=== PATIENT | male | born 1955 | race Caucasian/White ===

== ENCOUNTER 2019-10-19 15:32 | Inpatient (IN) ==
[2019-10-19] MEDS ORDERED: ACETAMINOPHEN 325 MG TABLET PO PRN (15:36)
[2019-10-19] MEDS ORDERED: DOCUSATE SODIUM 100 MG CAPSULE PO PRN (15:36)
[2019-10-19] MEDS ORDERED: ONDANSETRON 4 MG/2 ML VIAL IV PRN (15:36)
[2019-10-19] MEDS ORDERED: ZALEPLON 5 MG CAPSULE PO PRN (15:36)
[2019-10-19] MEDS ORDERED: GLUCAGON 1 MG VIAL IM PRN (15:53)
[2019-10-19] MEDS ORDERED: DEXTROSE 50% 25 GM/50 ML VIAL IV PRN (15:53)
[2019-10-19 19:56] LABS: Basophils % 0.6 % (0.0-0.8); Eosinophils # 0.2 10*3/uL (0.0-0.87); Eosinophils % 2.6 % (0.00-10.9); Hematocrit 41.4 VOL% (42.0-52.0); Hemoglobin 13.2 GM/DL (14.0-18.0); Immature Granulocytes % 0.3 %; Immature Granulocytes Absolute 0.02 #; Lymphocytes # 2.3 10*3/uL (1.4-4.0); Lymphocytes % 32.2 % (21.2-54.2); Mean Corpuscular HGB Conc 31.9 GM/DL (32-36); Mean Corpuscular Volume 88.5 FL (87-102); Mean Platelet Volume 9.5 FL (9.6-12.0); Monocytes % 7.8 % (1.7-12.7); Neutrophils % 56.5 % (38.7-73.9); Platelet Count 258 T/CUMM (130-400); Red Blood Count 4.68 MC/CUMM (3.8-5.5); Red Cell Distribution Width 13.1 % (9.3-17.3); White Blood Count 7.2 T/CUMM (4-12)
[2019-10-19 20:19] LABS: Calcium 8.1 MG/DL (8.5-10.1); Osmolality,Calculated 278.1 MOS/KG (273-304); Risk Ratio 6.46; VLDL CHOLESTEROL 55.8 MG/DL
[2019-10-19 20:21] LABS: CKMB % 10.9 %
[2019-10-19 20:24] LABS: Troponin I 8.34 NG/ML (0.00-0.045)
[2019-10-19 20:25] LABS: Troponin I 8.29 NG/ML (0.00-0.045)
[2019-10-19] MEDS: INSULIN REGULAR 100 UNIT/ML SUBCUT SCH (20:44)
[2019-10-19] MEDS ORDERED: DILTIAZEM CD 240 MG CAPSULE PO ONE (21:00)
[2019-10-19 22:17] LABS: CKMB % 11.1 %
[2019-10-19 22:18] LABS: Troponin I 8.87 NG/ML (0.00-0.045)
[2019-10-19] MEDS: ASCORBIC ACID 500 MG TABLET PO SCH (22:27)
[2019-10-20 06:34] LABS: Basophils % 0.7 % (0.0-0.8); Eosinophils # 0.2 10*3/uL (0.0-0.87); Eosinophils % 2.8 % (0.00-10.9); Hematocrit 35.5 VOL% (42.0-52.0); Hemoglobin 11.5 GM/DL (14.0-18.0); Immature Granulocytes % 0.2 %; Immature Granulocytes Absolute 0.01 #; Lymphocytes # 1.6 10*3/uL (1.4-4.0); Lymphocytes % 28.9 % (21.2-54.2); Mean Corpuscular HGB Conc 32.4 GM/DL (32-36); Mean Corpuscular Volume 86.8 FL (87-102); Mean Platelet Volume 9.6 FL (9.6-12.0); Monocytes % 10.6 % (1.7-12.7); Neutrophils % 56.8 % (38.7-73.9); Platelet Count 209 T/CUMM (130-400); Red Blood Count 4.09 MC/CUMM (3.8-5.5); White Blood Count 5.4 T/CUMM (4-12)
[2019-10-20 07:10] LABS: Calcium 8.2 MG/DL (8.5-10.1); Osmolality,Calculated 278.8 MOS/KG (273-304); Thyroid Stimulating Hormone 2.25 uIU/ml (0.358-3.74)
[2019-10-20] MEDS: PANTOPRAZOLE 40 MG TABLET PO SCH (09:37)
[2019-10-20] MEDS: METOPROLOL SUCCINATE XL 50 MG TABLET PO SCH (09:38)
[2019-10-20] MEDS: ASCORBIC ACID 500 MG TABLET PO SCH ×2 (09:38→21:20)
[2019-10-20] MEDS: INSULIN REGULAR 100 UNIT/ML SUBCUT SCH ×2 (09:49→16:48)
[2019-10-20] MEDS ORDERED: diphenhydrAMINE CAP 25 MG CAPSULE PO ONE (10:53)
[2019-10-20] MEDS ORDERED: ASPIRIN 325 MG TABLET PO ONE (10:53)
[2019-10-20] MEDS ORDERED: DIAZEPAM 5 MG TABLET PO ONE (10:53)
[2019-10-20] MEDS ORDERED: POTASSIUM CHLORIDE RIDER 10 MEQ in PREMIX 1 EACH IV PRN (10:53)
[2019-10-20] MEDS ORDERED: MAGNESIUM SULF RIDER 2 GM in PREMIX 1 EACH IV PRN (10:53)
[2019-10-20] MEDS ORDERED: LIDOCAINE 1% 20 ML VIAL ONE (11:10)
[2019-10-20] MEDS ORDERED: HEPARIN/NACL 0.9% 2 UNITS/ML 1,000 ML IV ONE (11:10)
[2019-10-20] MEDS ORDERED: VERAPAMIL 5 MG/2 ML VIAL ONE (11:22)
[2019-10-20] MEDS: SODIUM CHLORIDE 0.45% 1,000 ML IV SCH ×2 (11:22→21:22)
[2019-10-20] MEDS ORDERED: NITROGLYCERIN DRIP 50 MG/250 ML BOTTLE IV ONE (11:22)
[2019-10-20] MEDS ORDERED: MIDAZOLAM 2 MG/2 ML VIAL ONE (11:37)
[2019-10-20] MEDS ORDERED: HYDROmorphone 2 MG/1 ML VIAL ONE (11:37)
[2019-10-20] MEDS ORDERED: ENOXAPARIN 30 MG/0.3 ML SYRINGE ONE (12:01)
[2019-10-20] MEDS ORDERED: DEXTROSE 50% 25 GM/50 ML VIAL IV PRN (12:07)
[2019-10-20] MEDS ORDERED: SODIUM CHLORIDE 0.9% 1,000 ML IV SCH (12:30)
[2019-10-20] MEDS: ROSUVASTATIN 20 MG TABLET PO SCH (21:20)
[2019-10-20] MEDS: dilTIAZem Drip 125 MG/125 ML PREMIX IV SCH (21:38)
[2019-10-21 05:59] LABS: Basophils % 0.6 % (0.0-0.8); Eosinophils # 0.2 10*3/uL (0.0-0.87); Eosinophils % 2.2 % (0.00-10.9); Hemoglobin 11.3 GM/DL (14.0-18.0); Immature Granulocytes % 0.3 %; Immature Granulocytes Absolute 0.02 #; Lymphocytes # 1.4 10*3/uL (1.4-4.0); Lymphocytes % 20.8 % (21.2-54.2); Mean Corpuscular HGB Conc 32.3 GM/DL (32-36); Mean Corpuscular Volume 87.5 FL (87-102); Mean Platelet Volume 9.1 FL (9.6-12.0); Monocytes % 12.1 % (1.7-12.7); Platelet Count 213 T/CUMM (130-400); Red Cell Distribution Width 12.8 % (9.3-17.3); White Blood Count 6.9 T/CUMM (4-12)
[2019-10-21] MEDS: SODIUM CHLORIDE 0.45% 1,000 ML IV SCH ×3 (05:59→22:00)
[2019-10-21 06:47] LABS: Calcium 8.5 MG/DL (8.5-10.1)
[2019-10-21 08:09] LABS: Apearance,Urine CLEAR (Clear); Bilirubin,Urine Negative (Negative); Blood, Urine Negative (Negative); Glucose,Urine (UA) Negative (Negative); Ketones,Urine Negative (Negative); Nitrite,Urine Negative (Negative); Protein,Urine Negative; RBC,Urine <1 /HPF (0-4); Urine Color Straw (Yellow); Urine Specific Gravity 1.008 (1.001-1.035); Urine Urobilinogen < 2.0 EU/DL (0.2-1.0)
[2019-10-21] MEDS ORDERED: DEXTROSE 50% 25 GM/50 ML VIAL IV PRN (08:43)
[2019-10-21] MEDS ORDERED: GLUCAGON 1 MG VIAL IM PRN (08:43)
[2019-10-21] MEDS: INSULIN REGULAR 100 UNIT/ML SUBCUT SCH ×2 (08:47→16:54)
[2019-10-21] MEDS: METOPROLOL SUCCINATE XL 50 MG TABLET PO SCH (08:48)
[2019-10-21] MEDS: ASCORBIC ACID 500 MG TABLET PO SCH ×2 (08:48→21:57)
[2019-10-21] MEDS: PANTOPRAZOLE 40 MG TABLET PO SCH (08:48)
[2019-10-21] MEDS: ASPIRIN CHEW 81 MG TABLET PO SCH (08:48)
[2019-10-21] MEDS: LOSARTAN 25 MG TABLET PO SCH (08:49)
[2019-10-21] MEDS ORDERED: CLORAZEPATE 3.75 MG TABLET PO PRN (08:55)
[2019-10-21 10:09] LABS: ABG Base Excess -1.1 MMOL/L (-2.5-2.5); ABG Oxygen Saturation 94.7 % (95-100); ABG PCO2 32.1 MM HG (35-48); ABG PH 7.454 (7.35-7.45); ABG PO2 72.4 MM HG (80-95)
[2019-10-21] MEDS: CHLORHEXIDINE 0.12% ORAL RINSE 60 ML BOTTLE SWISH/SPIT SCH ×2 (15:51→21:57)
[2019-10-21] MEDS: CHLORHEXIDINE 4% SOLN 118 ML BOTTLE TOP SCH ×2 (17:53→21:58)
[2019-10-21] MEDS: dilTIAZem Drip 125 MG/125 ML PREMIX IV SCH (21:49)
[2019-10-21] MEDS: ROSUVASTATIN 20 MG TABLET PO SCH (21:57)
[2019-10-22] MEDS ORDERED: PAPAVERINE 60 MG/2 ML VIAL ONE (04:21)
[2019-10-22] MEDS ORDERED: VANCOMYCIN 500 MG VIAL ONE (04:22)
[2019-10-22] MEDS ORDERED: VANCOMYCIN 1,000 MG VIAL ONE (04:22)
[2019-10-22] MEDS: SODIUM CHLORIDE 0.45% 1,000 ML IV SCH (04:40)
[2019-10-22] MEDS ORDERED: CEFUROXIME INJ 1,500 MG in SYRINGE 1 EACH IV ONE (05:00)
[2019-10-22] MEDS ORDERED: HEPARIN/NACL 0.9% 2 UNITS/ML 500 ML IV ONE (05:56)
[2019-10-22] MEDS ORDERED: AMINOCAPROIC ACID 5,000 MG/20 ML VIAL ONE (05:57)
[2019-10-22] MEDS ORDERED: SODIUM CHLORIDE 0.9% 1,000 ML IV SCH (06:00)
[2019-10-22] MEDS ORDERED: FAMOTIDINE 20 MG TABLET PO ONE (06:00)
[2019-10-22] MEDS ORDERED: ALBUMIN 5% 12.5 GM/250 ML VIAL IV ONE ×2 (06:44→10:24)
[2019-10-22 07:32] LABS: ABG Base Excess -2.5 MMOL/L (-2.5-2.5); ABG HCO3 22.4 MMOL/L (20-26); ABG Oxygen Saturation 99.7 % (95-100); ABG PCO2 36.9 MM HG (35-48); ABG PH 7.385 (7.35-7.45); ABG TCO2 19.7 MMOL/L (23-27); Glucose Heart Surgery 166 MG/DL (74-106); Hematocrit Heart Surgery 35.7 PERCENT (42-52); Hemoglobin Heart Surgery 11.6 G/DL (14.0-18.0); Ionized Calcium Arterial 1.19 MMOL/L (1.21-1.46); PCO2 Patient Temp Arterial 36.9 MMHG; PH Patient Temp Arterial 7.385; Patient Temperature 37 CELCIUS; Potassium Heart/CVR 4.2 MMOL/L (3.5-5.1); Sodium Heart/CVR 138 MMOL/L (135-145)
[2019-10-22 08:55] LABS: Hemoglobin Heart Surgery 8.2 G/DL (14.0-18.0); PCO2 Patient Temp Venous 32.2 MM HG; PH Patient Temp Venous 7.452; PO2 Patient Temp Venous 37.3 MM HG; Potassium Heart/CVR 4.7 MMOL/L (3.5-5.1); VBG Base Excess -1.8 MEQ/L (0-4); VBG HCO3 22.4 MEQ/L (24-28); VBG Oxygen Saturation 76.9 %; VBG PCO2 35.1 MMHG (41-51); VBG PH 7.422
[2019-10-22 09:10] LABS: Apearance,Urine CLEAR (Clear); Bacteria,Urine Occasional /HPF (Few); Bilirubin,Urine Negative (Negative); Blood, Urine Negative (Negative); Glucose,Urine (UA) Negative (Negative); Ketones,Urine 5 mg/dL (Negative); Nitrite,Urine Negative (Negative); Protein,Urine Negative; RBC,Urine 2 /HPF (0-4); Squamous Epithelial Cell,Urine Occasional /HPF (0-10); Urine Color Yellow (Yellow); Urine Specific Gravity 1.011 (1.001-1.035); Urine Urobilinogen < 2.0 EU/DL (0.2-1.0); WBC,Urine 2 /HPF (0-6)
[2019-10-22] MEDS ORDERED: CALCIUM CHLORIDE 1,000 MG/10 ML VIAL IV ONE (09:22)
[2019-10-22] MEDS ORDERED: PHENYLEPHRINE DRIP 20 MG/250 ML PREMIX IV ONE (09:22)
[2019-10-22] MEDS ORDERED: LIDOCAINE 2% 5 ML VIAL ONE ×2 (09:22→10:12)
[2019-10-22] MEDS ORDERED: SODIUM CHLORIDE 0.9% 100 ML IV ONE (09:23)
[2019-10-22] MEDS ORDERED: DILTIAZEM 50 MG/10 ML VIAL IV ONE (09:23)
[2019-10-22] MEDS ORDERED: MIDAZOLAM 10 MG/2 ML VIAL ONE (09:23)
[2019-10-22] MEDS ORDERED: SODIUM CHLORIDE 0.9% 2,000 ML IV ONE (09:23)
[2019-10-22] MEDS ORDERED: LACTATED RINGERS 1,000 ML IV ONE (09:23)
[2019-10-22] MEDS ORDERED: VECURONIUM 10 MG VIAL IV ONE (09:23)
[2019-10-22] MEDS ORDERED: METOPROLOL TARTRATE 5 MG/5 ML VIAL IV ONE (09:23)
[2019-10-22] MEDS ORDERED: SODIUM CHLORIDE 0.9% 250 ML IV ONE (09:23)
[2019-10-22] MEDS ORDERED: SUFentanil 250 MCG/5 ML AMP ONE (09:23)
[2019-10-22 09:25] LABS: Hematocrit Heart Surgery 25.8 PERCENT (42-52); Hemoglobin Heart Surgery 8.3 G/DL (14.0-18.0); PCO2 Patient Temp Venous 29.1 MM HG; PH Patient Temp Venous 7.47; PO2 Patient Temp Venous 35.4 MM HG; Potassium Heart/CVR 4.8 MMOL/L (3.5-5.1); VBG Base Excess -1.8 MEQ/L (0-4); VBG HCO3 22.7 MEQ/L (24-28); VBG Oxygen Saturation 79.9 %; VBG PCO2 33.6 MMHG (41-51); VBG PH 7.426; VBG PO2 43.5 MMHG (17-40)
[2019-10-22 10:09] LABS: ABG Base Excess -3.4 MMOL/L (-2.5-2.5); ABG HCO3 19.4 MMOL/L (20-26); ABG Oxygen Saturation 98.8 % (95-100); ABG PCO2 27.8 MM HG (35-48); ABG PH 7.462 (7.35-7.45); ABG PO2 208.4 MM HG (80-95); ABG TCO2 20.3 MMOL/L (23-27); Glucose Heart Surgery 248 MG/DL (74-106); Hemoglobin Heart Surgery 10.1 G/DL (14.0-18.0); Ionized Calcium Arterial 1.19 MMOL/L (1.21-1.46); PCO2 Patient Temp Arterial 27.8 MMHG; PH Patient Temp Arterial 7.462; PO2 Patient Temp Arterial 208.4 MM HG; Patient Temperature 37 CELCIUS; Potassium Heart/CVR 4.8 MMOL/L (3.5-5.1); Sodium Heart/CVR 128 MMOL/L (135-145)
[2019-10-22] MEDS ORDERED: MANNITOL 100 GM/500 ML BAG IV ONE (10:12)
[2019-10-22] MEDS ORDERED: FUROSEMIDE 20 MG/2 ML VIAL ONE (10:13)
[2019-10-22] MEDS ORDERED: SODIUM BICARBONATE 50 MEQ/50 ML VIAL IV ONE (10:13)
[2019-10-22] MEDS ORDERED: PROTAMINE SULFATE 50 MG/5 ML VIAL IV ONE (10:13)
[2019-10-22] MEDS ORDERED: ALBUMIN 25% 25 GM/100 ML VIAL IV ONE (10:13)
[2019-10-22] MEDS ORDERED: DEXTROSE 5% KCL 20 MEQ 20 MEQ/1,000 ML BAG IV ONE (10:13)
[2019-10-22] MEDS ORDERED: PROTAMINE SULFATE 250 MG/25 ML VIAL IV ONE (10:13)
[2019-10-22] MEDS ORDERED: HEPARIN 10,000 UNIT/10 ML VIAL ONE (10:13)
[2019-10-22] MEDS ORDERED: methylPREDNISolone SOD SUC 1,000 MG/8 ML VIAL ONE (10:13)
[2019-10-22] MEDS ORDERED: MAGNESIUM SULFATE 5 GM/10 ML VIAL IV ONE (10:13)
[2019-10-22] MEDS ORDERED: POTASSIUM CHLORIDE RIDER 100 ML IV ONE (10:24)
[2019-10-22] MEDS ORDERED: EPINEPHrine 1 MG/10 ML SYRINGE ONE (10:24)
[2019-10-22] MEDS ORDERED: CALCIUM CHLORIDE 1,000 MG/10 ML SYRINGE IV ONE (10:24)
[2019-10-22] MEDS ORDERED: PHENYLEPHRINE DRIP 40 MG/250 ML PREMIX IV ONE (10:24)
[2019-10-22] MEDS ORDERED: INSULIN REGULAR 100 UNIT/ML IV PRN (10:46)
[2019-10-22] MEDS ORDERED: ACETAMINOPHEN 650 MG SUPP RECTAL PRN (10:46)
[2019-10-22] MEDS ORDERED: MIDAZOLAM 2 MG/2 ML VIAL IV PRN (10:46)
[2019-10-22] MEDS ORDERED: POTASSIUM CHLORIDE RIDER 10 MEQ in PREMIX 1 EACH IV PRN (10:46)
[2019-10-22] MEDS ORDERED: ONDANSETRON 4 MG/2 ML VIAL IV PRN (10:46)
[2019-10-22] MEDS ORDERED: CHLORHEXIDINE 4% SOLN 118 ML BOTTLE TOP PRN (10:46)
[2019-10-22] MEDS ORDERED: NITROPRUSSIDE 100 MG in DEXTROSE 5% 250 ML IV PRN (10:46)
[2019-10-22] MEDS ORDERED: MAGNESIUM SULF RIDER 4 GM in PREMIX 1 EACH IV PRN (10:46)
[2019-10-22] MEDS ORDERED: VECURONIUM 10 MG VIAL IV PRN ×2 (10:46)
[2019-10-22] MEDS ORDERED: INSULIN REGULAR 100 UNIT/ML IV ONE (10:46)
[2019-10-22] MEDS ORDERED: SODIUM CHLORIDE 0.45% 1,000 ML IV SCH ×2 (10:46)
[2019-10-22] MEDS ORDERED: DEXTROSE 10% 250 ML BAG IV PRN ×2 (10:46)
[2019-10-22] MEDS ORDERED: MORPHINE 10 MG/1 ML VIAL IV PRN (10:46)
[2019-10-22] MEDS ORDERED: PHENYLEPHRINE DRIP 40 MG/250 ML PREMIX IV PRN (10:46)
[2019-10-22] MEDS ORDERED: MIDAZOLAM 10 MG/2 ML VIAL IV PRN (10:46)
[2019-10-22] MEDS ORDERED: CALCIUM CHLORIDE 1,000 MG/10 ML SYRINGE IV PRN (10:46)
[2019-10-22] MEDS ORDERED: INSULIN REGULAR DRIP 100 ML IV SCH (10:46)
[2019-10-22] MEDS ORDERED: MAGNESIUM SULF RIDER 2 GM in PREMIX 1 EACH IV PRN (10:46)
[2019-10-22] MEDS ORDERED: SEVOFLURANE 1 UNIT/15 MINUTE INH ONE (10:53)
[2019-10-22] MEDS: LACTATED RINGERS 250 ML IV PRN ×7 (11:00→14:58)
[2019-10-22 11:09] LABS: ABG Base Excess -2.4 MMOL/L (-2.5-2.5); ABG HCO3 22.4 MMOL/L (20-26); ABG Oxygen Saturation 97.1 % (95-100); ABG PCO2 36.6 MM HG (35-48); ABG PO2 87.7 MM HG (80-95); Glucose Heart Surgery 245 MG/DL (74-106); Hemoglobin Heart Surgery 10.7 G/DL (14.0-18.0); Potassium Heart/CVR 4.3 MMOL/L (3.5-5.1)
[2019-10-22 11:09] LABS: Basophils % 0.5 % (0.0-0.8); Eosinophils # 0.1 10*3/uL (0.0-0.87); Eosinophils % 1.3 % (0.00-10.9); Hematocrit 32.9 VOL% (42.0-52.0); Hemoglobin 10.6 GM/DL (14.0-18.0); Immature Granulocytes % 0.7 %; Immature Granulocytes Absolute 0.04 #; Lymphocytes # 0.6 10*3/uL (1.4-4.0); Lymphocytes % 11.3 % (21.2-54.2); Mean Corpuscular HGB Conc 32.2 GM/DL (32-36); Mean Corpuscular Volume 88.4 FL (87-102); Mean Platelet Volume 9.5 FL (9.6-12.0); Monocytes % 5.3 % (1.7-12.7); Neutrophils % 80.9 % (38.7-73.9); Platelet Count 161 T/CUMM (130-400); Red Blood Count 3.72 MC/CUMM (3.8-5.5); Red Cell Distribution Width 12.9 % (9.3-17.3); White Blood Count 5.5 T/CUMM (4-12)
[2019-10-22] MEDS: CHLORHEXIDINE 4% SOLN 118 ML BOTTLE TOP SCH (11:12)
[2019-10-22 11:20] LABS: INR 1.2; PT Patient Result 12.4 SECS (9.8-11.9)
[2019-10-22 11:27] LABS: Albumin 3.7 G/DL (3.4-5.0); Bilirubin,Total 1.2 MG/DL (0.2-1.0); Calcium 9.7 MG/DL (8.5-10.1); Osmolality,Calculated 279.1 MOS/KG (273-304); Total Protein 7.2 G/DL (6.4-8.3)
[2019-10-22] MEDS: POTASSIUM CHLORIDE RIDER 20 MEQ in PREMIX 1 EACH IV PRN ×4 (11:47→22:40)
[2019-10-22] MEDS: ALBUMIN 5% 12.5 GM in PREMIX 1 EACH IV PRN ×4 (11:48→14:42)
[2019-10-22 11:55] LABS: CKMB % 6.4 %
[2019-10-22 11:58] LABS: Troponin I 5.23 NG/ML (0.00-0.045)
[2019-10-22] MEDS: LOSARTAN 25 MG TABLET PO SCH (12:29)
[2019-10-22] MEDS: ASPIRIN CHEW 81 MG TABLET PO SCH (12:29)
[2019-10-22] MEDS: METOPROLOL SUCCINATE XL 50 MG TABLET PO SCH (12:29)
[2019-10-22] MEDS: PANTOPRAZOLE 40 MG TABLET PO SCH (12:29)
[2019-10-22] MEDS: CHLORHEXIDINE 0.12% ORAL RINSE 60 ML BOTTLE SWISH/SPIT SCH ×2 (12:29→21:25)
[2019-10-22] MEDS: ASCORBIC ACID 500 MG TABLET PO SCH (12:30)
[2019-10-22] MEDS: INSULIN REGULAR 100 UNIT/ML SUBCUT SCH (12:30)
[2019-10-22 14:15] LABS: ABG Base Excess -1.9 MMOL/L (-2.5-2.5); ABG HCO3 22.9 MMOL/L (20-26); ABG Oxygen Saturation 97.8 % (95-100); ABG PCO2 36.9 MM HG (35-48); ABG PH 7.396 (7.35-7.45); ABG PO2 95.3 MM HG (80-95); ABG TCO2 20.6 MMOL/L (23-27); Glucose Heart Surgery 191 MG/DL (74-106); Hematocrit Heart Surgery 31.3 PERCENT (42-52); Hemoglobin Heart Surgery 10.1 G/DL (14.0-18.0); Potassium Heart/CVR 3.6 MMOL/L (3.5-5.1)
[2019-10-22] MEDS: CEFUROXIME INJ 1,500 MG in SYRINGE 1 EACH IV SCH (18:50)
[2019-10-22] MEDS: MORPHINE 4 MG/1 ML VIAL IV PRN (19:18)
[2019-10-22 19:31] LABS: ABG Base Excess -2.6 MMOL/L (-2.5-2.5); ABG HCO3 22.2 MMOL/L (20-26); ABG Oxygen Saturation 94.6 % (95-100); ABG PCO2 39.6 MM HG (35-48); ABG PH 7.364 (7.35-7.45); ABG PO2 75.2 MM HG (80-95); ABG TCO2 20.6 MMOL/L (23-27); Glucose Heart Surgery 119 MG/DL (74-106); Hematocrit Heart Surgery 31.1 PERCENT (42-52); Hemoglobin Heart Surgery 10.1 G/DL (14.0-18.0); Potassium Heart/CVR 3.8 MMOL/L (3.5-5.1)
[2019-10-22] MEDS: LATANOPROST 0.005% OPH SOLN 2.5 ML BOTTLE RIGHT EYE SCH (21:27)
[2019-10-22 22:28] LABS: ABG Base Excess -3.4 MMOL/L (-2.5-2.5); ABG HCO3 21.6 MMOL/L (20-26); ABG Oxygen Saturation 97.5 % (95-100); ABG PCO2 36.1 MM HG (35-48); ABG PH 7.378 (7.35-7.45); ABG PO2 90.7 MM HG (80-95); ABG TCO2 19.5 MMOL/L (23-27); Glucose Heart Surgery 134 MG/DL (74-106); Hematocrit Heart Surgery 30.1 PERCENT (42-52); Hemoglobin Heart Surgery 9.7 G/DL (14.0-18.0); Potassium Heart/CVR 4.1 MMOL/L (3.5-5.1)
[2019-10-22 22:54] LABS: CKMB % 3.2 %
[2019-10-22 23:01] LABS: Troponin I 4.2 NG/ML (0.00-0.045)
[2019-10-22 23:14] LABS: ABG Base Excess -3.2 MMOL/L (-2.5-2.5); ABG HCO3 21.7 MMOL/L (20-26); ABG Oxygen Saturation 97.9 % (95-100); ABG PCO2 35.7 MM HG (35-48); ABG PH 7.384 (7.35-7.45); ABG PO2 96.3 MM HG (80-95); ABG TCO2 19.5 MMOL/L (23-27); Glucose Heart Surgery 139 MG/DL (74-106); Hematocrit Heart Surgery 30.5 PERCENT (42-52); Hemoglobin Heart Surgery 9.9 G/DL (14.0-18.0); Potassium Heart/CVR 4.4 MMOL/L (3.5-5.1)
[2019-10-23 00:24] LABS: ABG Base Excess -3.6 MMOL/L (-2.5-2.5); ABG HCO3 21.1 MMOL/L (20-26); ABG Oxygen Saturation 95.5 % (95-100); ABG PCO2 36.6 MM HG (35-48); ABG PH 7.378 (7.35-7.45); ABG PO2 84.4 MM HG (80-95); ABG TCO2 22.2 MMOL/L (23-27); Glucose Heart Surgery 133 MG/DL (74-106); Hemoglobin Heart Surgery 10.3 G/DL (14.0-18.0); Potassium Heart/CVR 4.4 MMOL/L (3.5-5.1)
[2019-10-23 02:17] LABS: ABG Base Excess -3.4 MMOL/L (-2.5-2.5); ABG HCO3 21.6 MMOL/L (20-26); ABG Oxygen Saturation 97.5 % (95-100); ABG PCO2 35.1 MM HG (35-48); ABG PH 7.386 (7.35-7.45); ABG PO2 92.1 MM HG (80-95); ABG TCO2 19.2 MMOL/L (23-27); Glucose Heart Surgery 154 MG/DL (74-106); Hematocrit Heart Surgery 30.8 PERCENT (42-52); Potassium Heart/CVR 4.3 MMOL/L (3.5-5.1)
[2019-10-23 04:39] LABS: Basophils % 0.1 % (0.0-0.8); Hematocrit 30.6 VOL% (42.0-52.0); Hemoglobin 9.8 GM/DL (14.0-18.0); Immature Granulocytes % 0.5 %; Immature Granulocytes Absolute 0.05 #; Lymphocytes # 0.5 10*3/uL (1.4-4.0); Lymphocytes % 4.7 % (21.2-54.2); Mean Corpuscular Volume 88.4 FL (87-102); Mean Platelet Volume 9.9 FL (9.6-12.0); Monocytes % 4.9 % (1.7-12.7); Neutrophils % 89.8 % (38.7-73.9); Platelet Count 170 T/CUMM (130-400); Red Blood Count 3.46 MC/CUMM (3.8-5.5); White Blood Count 9.8 T/CUMM (4-12)
[2019-10-23 04:46] LABS: ABG Base Excess -3.6 MMOL/L (-2.5-2.5); ABG HCO3 21.4 MMOL/L (20-26); ABG PCO2 34.2 MM HG (35-48); ABG PH 7.391 (7.35-7.45); ABG PO2 74.7 MM HG (80-95); ABG TCO2 18.8 MMOL/L (23-27); Glucose Heart Surgery 158 MG/DL (74-106); Hematocrit Heart Surgery 31.8 PERCENT (42-52); Hemoglobin Heart Surgery 10.3 G/DL (14.0-18.0); Potassium Heart/CVR 4.1 MMOL/L (3.5-5.1)
[2019-10-23 05:00] LABS: Band Neutrophils 3 % (0-10); Lymphocytes 5 % (20-55); Segmented Neutrophils 90 % (50-85); Total Cells Counted 100
[2019-10-23 05:01] LABS: Hypochromasia 1+; Microcytosis Slight; Polychromasia Slight
[2019-10-23 05:02] LABS: Ovalocytes Slight; Platelet Estimate Adequate
[2019-10-23 05:25] LABS: Albumin 3.9 G/DL (3.4-5.0); Bilirubin,Direct 0.19 MG/DL (0.0-0.20); Bilirubin,Total 0.8 MG/DL (0.2-1.0); Osmolality,Calculated 285.4 MOS/KG (273-304); Total Protein 7.6 G/DL (6.4-8.3)
[2019-10-23 05:26] LABS: CKMB % 2.2 %
[2019-10-23 05:35] LABS: Troponin I 3.58 NG/ML (0.00-0.045)
[2019-10-23] MEDS: CEFUROXIME INJ 1,500 MG in SYRINGE 1 EACH IV SCH ×2 (07:01→18:47)
[2019-10-23] MEDS: MORPHINE 4 MG/1 ML VIAL IV PRN (07:37)
[2019-10-23] MEDS ORDERED: INSULIN REGULAR 100 UNIT/ML SUBCUT SCH ×2 (08:00→16:00)
[2019-10-23] MEDS: CHLORHEXIDINE 0.12% ORAL RINSE 60 ML BOTTLE SWISH/SPIT SCH ×2 (08:04→21:49)
[2019-10-23] MEDS ORDERED: FUROSEMIDE 40 MG/4 ML VIAL IV ONE (08:47)
[2019-10-23] MEDS ORDERED: FUROSEMIDE 40 MG/4 ML VIAL ONE (08:53)
[2019-10-23] MEDS ORDERED: MAGNESIUM SULF RIDER 4 GM in PREMIX 1 EACH IV PRN (10:06)
[2019-10-23] MEDS ORDERED: SODIUM CHLOR 0.45% KCL 20 MEQ 20 MEQ/1,000 ML BAG IV SCH (10:06)
[2019-10-23] MEDS ORDERED: ACETAMINOPHEN 325 MG TABLET PO PRN (10:06)
[2019-10-23] MEDS ORDERED: POTASSIUM CHLORIDE 20 MEQ TABLET PO PRN (10:06)
[2019-10-23] MEDS ORDERED: MAGNESIUM HYDROXIDE SUSP 30 ML UDCUP PO PRN (10:06)
[2019-10-23] MEDS ORDERED: GLUCAGON 1 MG VIAL IM PRN (10:06)
[2019-10-23] MEDS ORDERED: ALUMINUM/MAGNES/SIMETH MAX STR 30 ML UDCUP PO PRN (10:06)
[2019-10-23] MEDS ORDERED: DEXTROSE 10% 250 ML BAG IV PRN (10:06)
[2019-10-23] MEDS ORDERED: MAGNESIUM SULF RIDER 2 GM in PREMIX 1 EACH IV PRN (10:06)
[2019-10-23] MEDS ORDERED: METOPROLOL SUCCINATE XL 25 MG TABLET PO SCH (10:06)
[2019-10-23] MEDS ORDERED: ONDANSETRON 4 MG/2 ML VIAL IV PRN (10:06)
[2019-10-23] MEDS: ASPIRIN EC 325 MG TABLET PO SCH (10:40)
[2019-10-23 11:53] LABS: CKMB % 1.6 %
[2019-10-23 11:54] LABS: Troponin I 2.64 NG/ML (0.00-0.045)
[2019-10-23] MEDS: oxyCODONE/ACETAMINOPHEN 5-325 MG TABLET PO PRN (13:46)
[2019-10-23] MEDS ORDERED: hydrALAZINE 20 MG/1 ML VIAL IV PRN (14:01)
[2019-10-23] MEDS: INSULIN REGULAR 100 UNIT/ML SUBCUT SCH ×2 (15:51→21:46)
[2019-10-23] MEDS: LATANOPROST 0.005% OPH SOLN 2.5 ML BOTTLE RIGHT EYE SCH (21:45)
[2019-10-23] MEDS: ATORVASTATIN 40 MG TABLET PO SCH (21:50)
[2019-10-24] MEDS: INSULIN REGULAR 100 UNIT/ML SUBCUT SCH ×6 (01:27→21:38)
[2019-10-24] MEDS ORDERED: DILTIAZEM 25 MG/5 ML VIAL IV ONE (05:03)
[2019-10-24] MEDS ORDERED: AMIODARONE INJ 150 MG in DEXTROSE 5% 100 ML IV ONE (05:03)
[2019-10-24] MEDS ORDERED: AMIODARONE INJ 450 MG in DEXTROSE 5% 241 ML IV SCH (05:30)
[2019-10-24 05:52] LABS: Basophils % 0.1 % (0.0-0.8); Hematocrit 32.1 VOL% (42.0-52.0); Hemoglobin 10.8 GM/DL (14.0-18.0); Immature Granulocytes % 1.1 %; Immature Granulocytes Absolute 0.15 #; Lymphocytes # 0.6 10*3/uL (1.4-4.0); Lymphocytes % 4.2 % (21.2-54.2); Mean Corpuscular HGB Conc 33.6 GM/DL (32-36); Mean Corpuscular Volume 86.5 FL (87-102); Mean Platelet Volume 10.3 FL (9.6-12.0); Monocytes % 5.9 % (1.7-12.7); Neutrophils % 88.7 % (38.7-73.9); Platelet Count 241 T/CUMM (130-400); Red Blood Count 3.71 MC/CUMM (3.8-5.5); Red Cell Distribution Width 13.1 % (9.3-17.3); White Blood Count 13.8 T/CUMM (4-12)
[2019-10-24] MEDS ORDERED: FUROSEMIDE 40 MG/4 ML VIAL IV ONE (06:00)
[2019-10-24] MEDS: dilTIAZem Drip 125 MG/125 ML PREMIX IV SCH (06:13)
[2019-10-24 06:18] LABS: Albumin 3.8 G/DL (3.4-5.0); Bilirubin,Direct 0.16 MG/DL (0.0-0.20); Bilirubin,Total 0.9 MG/DL (0.2-1.0); Calcium 9.1 MG/DL (8.5-10.1); Osmolality,Calculated 283.4 MOS/KG (273-304); Total Protein 7.8 G/DL (6.4-8.3)
[2019-10-24 06:22] LABS: Albumin 3.9 G/DL (3.4-5.0); Bilirubin,Direct 0.18 MG/DL (0.0-0.20); Bilirubin,Indirect 1.7 MG/DL (0.0-1.0); Bilirubin,Total 1.9 MG/DL (0.2-1.0); CKMB % 0.9 %; Total Protein 7.5 G/DL (6.4-8.3)
[2019-10-24 06:25] LABS: Troponin I 1.28 NG/ML (0.00-0.045)
[2019-10-24 06:26] LABS: Hypochromasia 1+; Lymphocytes 5 % (20-55); Platelet Estimate Adequate; Segmented Neutrophils 90 % (50-85); Total Cells Counted 100
[2019-10-24 06:27] LABS: Microcytosis Slight
[2019-10-24] MEDS: DOCUSATE SODIUM 100 MG CAPSULE PO SCH (08:26)
[2019-10-24] MEDS: CHLORHEXIDINE 0.12% ORAL RINSE 60 ML BOTTLE SWISH/SPIT SCH ×2 (08:26→21:43)
[2019-10-24] MEDS: PANTOPRAZOLE 40 MG TABLET PO SCH (08:26)
[2019-10-24] MEDS: FERROUS SULFATE 325 MG TABLET PO SCH (08:26)
[2019-10-24] MEDS: ASPIRIN EC 325 MG TABLET PO SCH (08:26)
[2019-10-24] MEDS: METOPROLOL TARTRATE 25 MG TABLET PO SCH ×2 (08:26→21:37)
[2019-10-24] MEDS: oxyCODONE/ACETAMINOPHEN 5-325 MG TABLET PO PRN ×3 (08:26→21:37)
[2019-10-24] MEDS: ASCORBIC ACID 500 MG TABLET PO SCH ×2 (09:51→21:36)
[2019-10-24] MEDS ORDERED: DILTIAZEM 50 MG/10 ML VIAL IV ONE (10:01)
[2019-10-24] MEDS: AMIODARONE INJ 450 MG in DEXTROSE 5% 241 ML IV SCH (13:50)
[2019-10-24] MEDS ORDERED: ENOXAPARIN 40 MG/0.4 ML SYRINGE SUBCUT SCH (21:00)
[2019-10-24] MEDS: ATORVASTATIN 40 MG TABLET PO SCH (21:36)
[2019-10-24] MEDS: ZALEPLON 5 MG CAPSULE PO PRN (21:37)
[2019-10-24] MEDS: metFORMIN 500 MG TABLET PO SCH (21:37)
[2019-10-24] MEDS: LATANOPROST 0.005% OPH SOLN 2.5 ML BOTTLE RIGHT EYE SCH (21:43)
[2019-10-25] MEDS: INSULIN REGULAR 100 UNIT/ML SUBCUT SCH ×7 (00:41→23:29)
[2019-10-25] MEDS: dilTIAZem Drip 125 MG/125 ML PREMIX IV SCH ×2 (00:48→06:02)
[2019-10-25] MEDS: AMIODARONE INJ 450 MG in DEXTROSE 5% 241 ML IV SCH (03:42)
[2019-10-25 05:59] LABS: Basophils % 0.1 % (0.0-0.8); Eosinophils % 0.2 % (0.00-10.9); Hematocrit 32.7 VOL% (42.0-52.0); Hemoglobin 10.8 GM/DL (14.0-18.0); Immature Granulocytes Absolute 0.14 #; Lymphocytes # 1.4 10*3/uL (1.4-4.0); Lymphocytes % 10.1 % (21.2-54.2); Mean Corpuscular Volume 86.3 FL (87-102); Mean Platelet Volume 10.1 FL (9.6-12.0); Monocytes % 9.2 % (1.7-12.7); Neutrophils % 79.4 % (38.7-73.9); Platelet Count 275 T/CUMM (130-400); Red Blood Count 3.79 MC/CUMM (3.8-5.5); Red Cell Distribution Width 13.2 % (9.3-17.3); White Blood Count 13.6 T/CUMM (4-12)
[2019-10-25] MEDS: oxyCODONE/ACETAMINOPHEN 5-325 MG TABLET PO PRN ×2 (06:05→21:47)
[2019-10-25 06:39] LABS: Alanine Aminotransferase 33 U/L (16-61); Albumin 3.3 G/DL (3.4-5.0); Alkaline Phosphatase 57 U/L (45-117); Aspartate Amino Transferase 22 U/L (0-37); Bilirubin,Total < 0.39 MG/DL (0.2-1.0); Blood Urea Nitrogen 44 MG/DL (7-18); Calcium 8.8 MG/DL (8.5-10.1); Estimated Glom Filtration Rate 58 ML/MIN; Glucose 193 MG/DL (74-106); Osmolality,Calculated 283.2 MOS/KG (273-304); Total Protein 7.3 G/DL (6.4-8.3)
[2019-10-25 06:49] LABS: Alanine Aminotransferase 33 U/L (16-61); Albumin 3.4 G/DL (3.4-5.0); Alkaline Phosphatase 57 U/L (45-117); Aspartate Amino Transferase 20 U/L (0-37); Bilirubin,Indirect 0.3 MG/DL (0.0-1.0); Bilirubin,Total < 0.39 MG/DL (0.2-1.0); Total Protein 6.9 G/DL (6.4-8.3)
[2019-10-25 06:50] LABS: Troponin I 0.619 NG/ML (0.00-0.045)
[2019-10-25 07:52] LABS: Target Cells Few
[2019-10-25 07:53] LABS: Anisocytosis 1+; Burr Cells Few; Hypochromasia 2+
[2019-10-25 07:54] LABS: Platelet Estimate Normal
[2019-10-25] MEDS: METOPROLOL TARTRATE 25 MG TABLET PO SCH ×2 (09:29→21:46)
[2019-10-25] MEDS: metFORMIN 500 MG TABLET PO SCH ×2 (09:29→21:47)
[2019-10-25] MEDS: ASPIRIN EC 325 MG TABLET PO SCH (09:29)
[2019-10-25] MEDS: DOCUSATE SODIUM 100 MG CAPSULE PO SCH (09:29)
[2019-10-25] MEDS: PANTOPRAZOLE 40 MG TABLET PO SCH (09:29)
[2019-10-25] MEDS: FERROUS SULFATE 325 MG TABLET PO SCH (09:30)
[2019-10-25] MEDS: CHLORHEXIDINE 0.12% ORAL RINSE 60 ML BOTTLE SWISH/SPIT SCH ×2 (09:30→21:48)
[2019-10-25] MEDS: AMIODARONE 200 MG TABLET PO SCH ×2 (09:30→21:47)
[2019-10-25] MEDS: ASCORBIC ACID 500 MG TABLET PO SCH ×2 (09:30→21:46)
[2019-10-25] MEDS: glyBURIDE 2.5 MG TABLET PO SCH (09:30)
[2019-10-25] MEDS: ATORVASTATIN 40 MG TABLET PO SCH (21:46)
[2019-10-25] MEDS: ZALEPLON 5 MG CAPSULE PO PRN (21:47)
[2019-10-25] MEDS: APIXABAN 5 MG TABLET PO SCH (21:47)
[2019-10-25] MEDS: LATANOPROST 0.005% OPH SOLN 2.5 ML BOTTLE RIGHT EYE SCH (21:48)
[2019-10-26 05:37] LABS: Basophils % 0.1 % (0.0-0.8); Eosinophils # 0.2 10*3/uL (0.0-0.87); Eosinophils % 2.2 % (0.00-10.9); Hematocrit 33.7 VOL% (42.0-52.0); Hemoglobin 10.7 GM/DL (14.0-18.0); Immature Granulocytes % 0.8 %; Immature Granulocytes Absolute 0.08 #; Lymphocytes # 2.1 10*3/uL (1.4-4.0); Mean Corpuscular HGB Conc 31.8 GM/DL (32-36); Mean Corpuscular Volume 89.6 FL (87-102); Mean Platelet Volume 9.7 FL (9.6-12.0); Neutrophils % 64.9 % (38.7-73.9); Platelet Count 308 T/CUMM (130-400); Red Blood Count 3.76 MC/CUMM (3.8-5.5); Red Cell Distribution Width 13.1 % (9.3-17.3); White Blood Count 9.6 T/CUMM (4-12)
[2019-10-26 05:55] LABS: Calcium 8.5 MG/DL (8.5-10.1); Osmolality,Calculated 281.2 MOS/KG (273-304)
[2019-10-26] MEDS: INSULIN REGULAR 100 UNIT/ML SUBCUT SCH ×4 (09:35→20:59)
[2019-10-26] MEDS: AMIODARONE 200 MG TABLET PO SCH ×2 (09:36→21:00)
[2019-10-26] MEDS: DOCUSATE SODIUM 100 MG CAPSULE PO SCH (09:36)
[2019-10-26] MEDS: glyBURIDE 2.5 MG TABLET PO SCH (09:36)
[2019-10-26] MEDS: ASCORBIC ACID 500 MG TABLET PO SCH ×2 (09:36→20:59)
[2019-10-26] MEDS: METOPROLOL TARTRATE 25 MG TABLET PO SCH ×2 (09:37→21:00)
[2019-10-26] MEDS: metFORMIN 500 MG TABLET PO SCH ×2 (09:37→21:00)
[2019-10-26] MEDS: PANTOPRAZOLE 40 MG TABLET PO SCH (09:37)
[2019-10-26] MEDS: ASPIRIN EC 81 MG TABLET PO SCH (09:37)
[2019-10-26] MEDS: APIXABAN 5 MG TABLET PO SCH ×2 (09:37→21:00)
[2019-10-26] MEDS: FERROUS SULFATE 325 MG TABLET PO SCH (09:37)
[2019-10-26] MEDS: CHLORHEXIDINE 0.12% ORAL RINSE 60 ML BOTTLE SWISH/SPIT SCH ×2 (11:10→21:00)
[2019-10-26] MEDS: oxyCODONE/ACETAMINOPHEN 5-325 MG TABLET PO PRN (15:29)
[2019-10-26] MEDS: ATORVASTATIN 40 MG TABLET PO SCH (21:00)
[2019-10-26] MEDS: ZALEPLON 5 MG CAPSULE PO PRN (21:00)
[2019-10-26] MEDS: LATANOPROST 0.005% OPH SOLN 2.5 ML BOTTLE RIGHT EYE SCH (21:01)
[2019-10-27 06:51] LABS: Basophils % 0.2 % (0.0-0.8); Eosinophils # 0.2 10*3/uL (0.0-0.87); Eosinophils % 2.7 % (0.00-10.9); Hematocrit 31.7 VOL% (42.0-52.0); Hemoglobin 10.5 GM/DL (14.0-18.0); Immature Granulocytes % 0.7 %; Immature Granulocytes Absolute 0.06 #; Lymphocytes # 1.8 10*3/uL (1.4-4.0); Lymphocytes % 20.8 % (21.2-54.2); Mean Corpuscular HGB Conc 33.1 GM/DL (32-36); Mean Corpuscular Volume 85.4 FL (87-102); Mean Platelet Volume 9.7 FL (9.6-12.0); Monocytes % 11.4 % (1.7-12.7); Neutrophils % 64.2 % (38.7-73.9); Platelet Count 308 T/CUMM (130-400); Red Blood Count 3.71 MC/CUMM (3.8-5.5); Red Cell Distribution Width 12.8 % (9.3-17.3); White Blood Count 8.7 T/CUMM (4-12)
[2019-10-27 07:16] LABS: Alanine Aminotransferase 46 U/L (16-61); Alkaline Phosphatase 57 U/L (45-117); Aspartate Amino Transferase 22 U/L (0-37); Bilirubin,Indirect 0.7 MG/DL (0.0-1.0); Blood Urea Nitrogen 28 MG/DL (7-18); Calcium 8.4 MG/DL (8.5-10.1); Estimated Glom Filtration Rate 67 ML/MIN; Glucose 121 MG/DL (74-106); Osmolality,Calculated 276.1 MOS/KG (273-304); Total Protein 6.8 G/DL (6.4-8.3)
[2019-10-27 07:19] LABS: Troponin I 0.287 NG/ML (0.00-0.045)
[2019-10-27 08:19] VITALS: BP 118/56
[2019-10-27] MEDS: metFORMIN 500 MG TABLET PO SCH (09:42)
[2019-10-27] MEDS: ASCORBIC ACID 500 MG TABLET PO SCH (09:42)
[2019-10-27] MEDS: glyBURIDE 2.5 MG TABLET PO SCH (09:43)
[2019-10-27] MEDS: PANTOPRAZOLE 40 MG TABLET PO SCH (09:43)
[2019-10-27] MEDS: AMIODARONE 200 MG TABLET PO SCH (09:43)
[2019-10-27] MEDS: APIXABAN 5 MG TABLET PO SCH (09:43)
[2019-10-27] MEDS: ASPIRIN EC 81 MG TABLET PO SCH (09:43)
[2019-10-27] MEDS: METOPROLOL TARTRATE 25 MG TABLET PO SCH (09:43)
[2019-10-27] MEDS: DOCUSATE SODIUM 100 MG CAPSULE PO SCH (09:43)
[2019-10-27] MEDS: CHLORHEXIDINE 0.12% ORAL RINSE 60 ML BOTTLE SWISH/SPIT SCH (09:44)
[2019-10-27] MEDS: FERROUS SULFATE 325 MG TABLET PO SCH (09:44)
[2019-10-27] MEDS: INSULIN REGULAR 100 UNIT/ML SUBCUT SCH ×2 (10:59→13:50)
== END 2019-10-27 14:00 | disposition home or self-care (01) | DRG 234 ==
LOC: N.TELEN → N.CVR 10-22 10:22 → N.TELES 10-23 10:50
PROVIDERS: ADMIT Internal Medicine Cardiovascular Disease
PROC: CLCCHCL (ICD-10-PCS; 2019-10-20 11:45)